=== PATIENT | male | born 1950 | race Caucasian/White ===

== ENCOUNTER 2017-09-17 06:20 | Day surgery (SDC) | payer MEDICARE ==
[~2017-09-17] VITALS: Ht 175.4 cm; Wt 91.9 kg
[2017-09-17] VITALS (8 sets, daily range): BP systolic 126–175; BP diastolic 64–85; PULSE 49–66; TEMP 97.4–98.5
[2017-09-17 07:07] LABS: CALCIUM 9.9 mg/dL (8.4-10.2); CREATININE, serum 0.85 mg/dL (0.66-1.25); POTASSIUM 4.1 mmol/L (3.4-5.0)
[2017-09-17 07:07] LABS: HEMATOCRIT 38.8 % (42.0-52.0); HEMOGLOBIN 13.5 g/dl (13.5-18.0); MEAN CELL VOLUME 96 fl (80.0-100.0); MEAN CORPUSCULAR HEMOGLOBIN 33 pg (27.0-31.0); MEAN CORPUSCULAR HGB CONC 35 g/dl (33.0-37.0); MEAN PLATELET VOLUME 13.4 fl (7.4-10.4); PLATELET COUNT 177 K/mm3 (130-400); RED BLOOD COUNT 4.05 M/mm3 (4.20-5.60); REDCELL DISTRIBUTION WIDTH-CV 13.1 % (11.5-14.5)
[2017-09-17] MEDS ORDERED: ASPIRIN 81M81 MG/TA2 PO (07:49)
[2017-09-17] MEDS ORDERED: PACERONE200 MG PO (07:50)
[2017-09-17] MEDS ORDERED: FLOMAX 0.40.4 MG/CAP PO (07:52)
[2017-09-17] MEDS ORDERED: COREG12.5 MG PO (07:52)
[2017-09-17] MEDS ORDERED: CEPHALEXIN500 M1 PO (12:37)
[2017-09-18 04:10] VITALS: BP 163/73; PULSE 60; TEMP 98.2
[2017-09-18 07:53] VITALS: BP 161/76; PULSE 62; TEMP 98.3
[2017-09-18] MEDS ORDERED: NORCO 325 MG-51 TAB PO (09:54)
== END 2017-09-18 11:37 | disposition home or self-care (01) ==
LOC: COL.CAR 06:20 → MEDICAL 11:08 → COL.CAR 09-18 11:37
PROVIDERS: Internal Medicine Cardiovascular Disease
DX: I48.0 Paroxysmal atrial fibrillation (principal); I49.5 Sick sinus syndrome; I08.3 Combined rheumatic disorders of mitral, aortic and tricuspid valves; I10 Essential (primary) hypertension; Z79.82 Long term (current) use of aspirin; Z79.899 Other long term (current) drug therapy; I73.9 Peripheral vascular disease, unspecified; Z86.79 Personal history of other diseases of the circulatory system; Z80.9 Family history of malignant neoplasm, unspecified; Z82.49 Family history of ischemic heart disease and other diseases of the circulatory system; E78.2 Mixed hyperlipidemia
CPT/HCPCS: OP; J0690; J2250; J3010; J7030

== ENCOUNTER 2019-01-18 09:53 | Day surgery (SDC) | payer MEDICARE ==
[~2019-01-18] VITALS: Ht 175.3 cm; Wt 103.8 kg
[~2019-01-18 09:53] MED LIST: ASPIRIN 32325 MG/TAB PO; CEPHALEXIN500 M1 PO; COREG12.5 MG PO; FLOMAX 0.40.4 MG/CAP PO; NORCO 325 MG-51 TAB PO; PACERONE200 MG PO
[2019-01-18 10:33] VITALS: BP 115/66; PULSE 67; TEMP 98.4
[2019-01-18] MEDS ORDERED: CORDARONE200 MG/TAB PO (10:45)
[2019-01-18] MEDS ORDERED: PRINZIDE 25 MG-1 TAB PO (10:49)
[2019-01-18] MEDS ORDERED: PRILOSEC 20MG20 MG PO (10:50)
[2019-01-18 12:10] VITALS: BP 109/57; PULSE 64; TEMP 98
--- NOTE | 2019-01-18 12:10 | NUR ---
Pt arrived to room post procedures awake, alert, and oriented. VSS and WNL. Pepsi brought to pt per request. Sister at bedside, call light within reach.
[2019-01-18 12:25] VITALS: BP 106/59; PULSE 60
--- NOTE | 2019-01-18 12:25 | NUR ---
Dr. Pardo at bedside reviewing procedures with pt and sister. VSS and WNL, call light within reach. Pt successfully drank Pepsi with no c/o n/v. Pt denies pain, and he states he is "doing good"
[2019-01-18 12:40] VITALS: BP 104/62; PULSE 60
--- NOTE | 2019-01-18 12:40 | NUR ---
Pt states that he is "ready to go." Reviewed discharge information including adverse signs/symptoms and who to call for concerns/questions. Pt and sister agree with plan and express understanding of the plan. VSS and WNL on RA.
== END 2019-01-18 13:05 | disposition home or self-care (01) ==
LOC: SDCO 09:53
DX: K21.9 Gastro-esophageal reflux disease without esophagitis (principal); K29.30 Chronic superficial gastritis without bleeding; K44.9 Diaphragmatic hernia without obstruction or gangrene; D12.3 Benign neoplasm of transverse colon; D12.8 Benign neoplasm of rectum; K57.30 Diverticulosis of large intestine without perforation or abscess without bleeding
CPT/HCPCS: J2704; J7030

== ENCOUNTER 2019-02-21 07:01 | Day surgery (SDC) | payer MEDICARE ==
[~2019-02-21] VITALS: Ht 175.3 cm; Wt 108.0 kg
[2019-02-21] VITALS (10 sets, daily range): BP systolic 130–161; BP diastolic 66–87; PULSE 59–62; TEMP 97.4
[~2019-02-21 07:01] MED LIST changes: +CORDARONE200 MG/TAB PO; +PRILOSEC 20MG20 MG PO; +PRINZIDE 25 MG-1 TAB PO
[2019-02-21 07:43] LABS: HEMATOCRIT 37.7 % (42.0-52.0); HEMOGLOBIN 12.7 g/dl (13.5-18.0); MEAN CELL VOLUME 107 fl (80.0-100.0); MEAN CORPUSCULAR HEMOGLOBIN 36 pg (27.0-31.0); MEAN CORPUSCULAR HGB CONC 34 g/dl (33.0-37.0); MEAN PLATELET VOLUME 12.3 fl (7.4-10.4); PLATELET COUNT 131 K/mm3 (130-400); RED BLOOD COUNT 3.53 M/mm3 (4.20-5.60); REDCELL DISTRIBUTION WIDTH-CV 12.9 % (11.5-14.5)
[2019-02-21 07:49] LABS: CALCIUM 9.4 mg/dL (8.4-10.2); CREATININE, serum 1.23 (0.66-1.25); POTASSIUM 4.6 mmol/L (3.4-5.0)
[2019-02-21] MEDS ORDERED: LIPITOR20 MG PO (07:49)
[2019-02-21] MEDS ORDERED: ZOLOFT 50MG50 MG PO (07:51)
[2019-02-21] MEDS ORDERED: NEXIUM 20MG20 MG PO (07:51)
[2019-02-21 08:00] LABS: INR 0.9 (0.8-3.0)
[2019-02-21 08:03] LABS: PARTIAL THROMBOPLASTIN TIME 29.7 SECONDS (26.0-37.0)
[2019-02-21] MEDS ORDERED: COREG 25MG25 MG/TAB PO (10:00)
--- NOTE | 2019-02-21 10:15 | NUR ---
Pt returned to [facility] 14 per bed s/p ONEIDA/heart cath. Pt resting well, sister at bedside.
--- NOTE | 2019-02-21 12:15 | NUR ---
Pt has ambulated, voided and melanie PO intake s n/v.
--- NOTE | 2019-02-21 13:15 | NUR ---
Radial compression band removed from R radial cath site. Site remains soft, C/D/I. Site covered with bandaid and gauze and wrapped with coban. Pt melanie well.
--- NOTE | 2019-02-21 13:30 | NUR ---
PIV removed with catheter intact.
--- NOTE | 2019-02-21 13:40 | NUR ---
Pt discharged per w/c by nurse with sister.
== END 2019-02-21 15:53 | disposition home or self-care (01) ==
LOC: COL.CAR 07:01
PROVIDERS: Internal Medicine Cardiovascular Disease
DX: I25.10 Atherosclerotic heart disease of native coronary artery without angina pectoris (principal); I08.0 Rheumatic disorders of both mitral and aortic valves; I48.91 Unspecified atrial fibrillation; I71.4 Abdominal aortic aneurysm, without rupture; I10 Essential (primary) hypertension; M19.90 Unspecified osteoarthritis, unspecified site; F32.9 Major depressive disorder, single episode, unspecified; Z79.899 Other long term (current) drug therapy; Z95.0 Presence of cardiac pacemaker
CPT/HCPCS: J1644; J2250; J2704

== ENCOUNTER → 2019-04-04 | Outpatient (CLI) | payer MEDICARE ==
[~2019-04-04] MED LIST changes: +COREG 25MG25 MG/TAB PO; +LIPITOR20 MG PO; +NEXIUM 20MG20 MG PO; +ZOLOFT 50MG50 MG PO
[2019-04-04 09:50] LABS: CALCIUM 9.4 mg/dL (8.4-10.2); CREATININE, serum 1.32 (0.66-1.25); POTASSIUM 4.2 mmol/L (3.4-5.0)
== END ==
LOC: COL.RAD 08:26 → COL.LAB 08:26 → COL.RAD 08:30
PROVIDERS: Nurse Practitioner
DX: I65.23 Occlusion and stenosis of bilateral carotid arteries (principal); I65.02 Occlusion and stenosis of left vertebral artery; Z95.0 Presence of cardiac pacemaker
CPT/HCPCS: Q9967

== ENCOUNTER → 2021-07-03 | Outpatient (CLI) | payer MEDICARE ==
[~2021-07-03] MED LIST changes: +ASPIRIN 81M81 MG/TA2 PO; +BETAPACE 80MG80 MG PO; +IMDUR 30MG30 MG/TAB PO; +PROSCAR 5MG5 MG PO; +TYLENOL 8 HR PO
== END ==
LOC: COL.RAD 07:30
DX: K43.9 Ventral hernia without obstruction or gangrene (principal); I71.4 Abdominal aortic aneurysm, without rupture; D12.6 Benign neoplasm of colon, unspecified; K21.9 Gastro-esophageal reflux disease without esophagitis
CPT/HCPCS: Q9967